=== PATIENT | female | born 1965 | race Caucasian/White ===

== ENCOUNTER → 2017-02-15 | Outpatient (CLI) | payer BC ==
--- NOTE | 2017-02-15 12:48 | DIAGNOSTIC IMAGING REPORT ---
PELVIC COMPLETE NON OB CLINICAL HISTORY: 51 years-old Female presenting with ABNORMAL UTERINE AND VAGINAL BLEEDING. TECHNIQUE: Real-time grayscale and color and spectral Doppler ultrasound imaging of the pelvis was performed using a transabdominal probe. COMPARISON: None. FINDINGS: Uterus: Globular ill-defined uterus. The uterus measures 7.6 x 4.9 x 5.1 cm. Endometrium not well-defined. Cervix not defined. Right adnexa: Right ovary not seen. Left adnexa: Left ovary not seen. Other: No free fluid. IMPRESSION: Extremity limited examination secondary to transabdominal technique is a patient declined the transvaginal ultrasound probe. Globular ill-defined uterus with poor delineation of the endometrium. If there is continuing clinical concern, further evaluation with contrast-enhanced MR of the pelvis could be considered. Electronically signed by: Lg Gutierrez M.D. 02/15/2017 12:47 PM Dictated Date/Time: 02/15/2017 12:44 PM
== END | disposition home or self-care (01) ==
LOC: C.ULTR 11:57
PROVIDERS: ATTEND Nurse Practitioner Family
DX: N93.9 Abnormal uterine and vaginal bleeding, unspecified (principal); N85.2 Hypertrophy of uterus